=== PATIENT | female | born 1970 | race Caucasian/White ===

== ENCOUNTER 2018-04-18 13:09 | Outpatient (CLI) | payer OTHER ==
--- NOTE | 2018-04-18 14:42 | MRI ---
MRI CERVICAL SPINE WITHOUT CONTRAST: DATE: 04/18/18. HISTORY: Left-sided numbness and tingling, neck pain with cervical radiculopathy. TECHNIQUE: Multiplanar, multisequence MR imaging of the cervical spine is provided without contrast. FINDINGS: There is straightening of the normal cervical lordosis. The sagittal STIR imaging demonstrates no focal area of osseous marrow edema. There is a probable T2 hyperintense nodule in the inferior aspect of the right lobe of the thyroid gl and measuring 1.1 cm. C2-3: No central canal or neural foraminal stenosis. C3-4: No central canal or neural foraminal stenosis. C4-5: There is disk space narrowing and disk desiccation. Thee is a central/left paracentral disk h erniation which abuts the ventral aspect of the cord with mild ventral cord flattening on the left. There is mild superior and inferior migration of this central/left paracentral disk herniation with a moderate degree of central canal stenosis. No significant neural foraminal stenosis. C5-6: There is disk desiccation and disk space narrowing with mild disk bulge causing no significant central canal or neural foraminal stenosis. C6-7: There is disk space narrowing, disk desiccation, and disk bulge. There is a disk herniation i n the foraminal region on the left abutting the exiting nerve root with significant left neural chasidy inal stenosis. No significant central canal or right neural foraminal stenosis. C7-T1: Intervertebral disk height and signal intensity within normal limits with no significant cent ral canal or neural foraminal stenosis. The imaged spinal cord demonstrates normal signal intensity. IMPRESSION: 1. Prominent central/left paracentral disk herniation at C4-5 causing a moderate degree of central c anal stenosis. 2. At C6-7, there is a left foraminal disk herniation causing prominent left neural foraminal stenos is. 3. Question thyroid nodule on the right. Recommend followup thyroid ultrasound. CODE T POS: GAURAV
== END 2018-04-18 13:10 | disposition home or self-care (01) ==
LOC: TBSIIMAG 13:09
PROVIDERS: ATTEND Neurological Surgery
DX: M50.10 Cervical disc disorder with radiculopathy, unspecified cervical region (principal); M48.02 Spinal stenosis, cervical region; M99.81 Other biomechanical lesions of cervical region
CPT/HCPCS: 72141

== ENCOUNTER 2018-09-11 11:37 | Outpatient (CLI) | payer OTHER | END 2018-09-11 11:38 | disposition home or self-care (01) | LOC: BICMAMMO 11:37 | PROVIDERS: ATTEND Obstetrics & Gynecology | DX: Z12.31 Encounter for screening mammogram for malignant neoplasm of breast (principal); Z80.3 Family history of malignant neoplasm of breast | CPT/HCPCS: 77063; 77067 ==

== ENCOUNTER 2019-07-18 07:34 | Outpatient (CLI) | payer OTHER ==
--- NOTE | 2019-07-18 10:33 | MRI ---
CERVICAL SPINE MRI WITHOUT CONTRAST: DATE: 07/18/2019. COMPARISON: 04/18/2018. HISTORY: Left shoulder pain for 1 year. Cervical radiculopathy. TECHNIQUE: Multiplanar, multisequence MRI imaging of the cervical spine provided without contrast. FINDINGS: The sagittal STIR imaging demonstrates no focal area of osseous marrow edema. There is no anterolist hesis or retrolisthesis seen within the cervical spine. C2-3: There is disk desiccation with no central canal or neural foraminal stenosis. C3-4: There is disk desiccation with a small central disk protrusion. There is no significant centr al canal or neural foraminal stenosis. C4-5: This disk herniation measures approximately 6 mm in AP dimension and 1.4 cm in craniocaudal di mension. Disk material abuts and slightly flattens the central/paracentral cord at the C4-5 level an d is unchanged when compared to the 2018 examination. There is no significant neural foraminal steno sis on either side. C5-6: There is disk space narrowing and disk desiccation with mild disk bulge. There is a superimpo sed right paracentral annular tear with an associated right paracentral disk protrusion. This right paracentral disk protrusion causes lateral central canal stenosis on the right and appears new. Ther e is also associated right neural foraminal stenosis which is in the mild to moderate range. No sign ificant left neural foraminal stenosis. C6-7: There is disk space narrowing and disk desiccation with disk bulge, similar when compared to p rior imaging. The degree of neural foraminal stenosis on the left has slightly worsened. On this ex am, there is mild central canal stenosis, mild right neural foraminal stenosis, and moderate left ashley ral foraminal stenosis. C7-T1: Mild bilateral facet hypertrophy with no significant central canal or neural foraminal stenos is. There is no focal area of abnormal signal intensity identified within the cervical cord. IMPRESSION: Multilevel degenerative change noted within the cervical spine as detailed above. This includes a st able large central disk herniation with superior migration at C4-5, a new right paracentral/right for aminal disk protrusion at C5-6 with associated lateral central canal stenosis and neural foraminal st enosis on the right, and a worsened left foraminal disk protrusion at C6-7. POS: OFF
== END 2019-07-18 07:35 | disposition home or self-care (01) ==
LOC: TBSIIMAG 07:34
PROVIDERS: ATTEND Neurological Surgery
DX: M47.22 Other spondylosis with radiculopathy, cervical region (principal); M47.23 Other spondylosis with radiculopathy, cervicothoracic region; M50.121 Cervical disc disorder at C4-C5 level with radiculopathy; M48.02 Spinal stenosis, cervical region
CPT/HCPCS: 72141

== ENCOUNTER 2019-08-28 08:20 | Outpatient (CLI) | payer BC ==
[2019-08-28 15:52] LABS: BHCG - Serum Negative (NEGATIVE); Pregs Control Background? CLEAR/WHITE (CLR/WHITE); Pregs Control Bar Appear? YES (CONTROL BAR)
== END 2019-08-28 08:21 | disposition home or self-care (01) ==
LOC: LABBT 08:20
PROVIDERS: ATTEND Neurological Surgery
DX: Z01.812 Encounter for preprocedural laboratory examination (principal); M54.12 Radiculopathy, cervical region
CPT/HCPCS: 84703

== ENCOUNTER 2019-09-05 05:39 | Inpatient (IN) | payer BC ==
[2019-08-28 14:23] VITALS: BMI 21.9
[2019-09-05] MEDS ORDERED: Thrombin 5000 UNITS/5 ML VIAL ONE (06:10)
[2019-09-05] MEDS ORDERED: Fentanyl 100 MCG/2 ML VIAL ONE ×2 (07:27→10:19)
[2019-09-05] MEDS ORDERED: Labetalol HCl 100 MG/20 ML VIAL ONE (09:33)
[2019-09-05] MEDS ORDERED: Aspirin Chewable 81 MG TAB ONE (10:43)
[2019-09-05] MEDS ORDERED: Nitroglycerin 2% Ointment 1 INCH/1 GM Packet ONE (10:44)
[2019-09-05] MEDS ORDERED: Morphine 4 MG/ML VIAL ONE (10:47)
[2019-09-05] MEDS ORDERED: Rocuronium Bromide 10 MG/ML (10ML VIAL) ONE (11:20)
[2019-09-05] MEDS ORDERED: Ondansetron PF 4 MG/2 ML Vial ONE (11:20)
[2019-09-05] MEDS ORDERED: Lidocaine 1% PF 5 ML VIAL ONE (11:20)
[2019-09-05] MEDS ORDERED: Esmolol 100 MG/10 ML VIAL ONE (11:20)
[2019-09-05] MEDS ORDERED: Dexamethasone 20 MG/5 ML VIAL ONE (11:20)
[2019-09-05] MEDS ORDERED: Glycopyrrolate 0.2 MG/ML 5 ML SYRINGE ONE (11:20)
[2019-09-05] MEDS ORDERED: PROPOFOL 200 MG/20 ML VIAL ONE (11:20)
[2019-09-05] MEDS ORDERED: PHENYLEPHRINE-NS 100 MCG/ML 10 ML SYRINGE ONE (11:20)
[2019-09-05 11:35] LABS: CKMB 0.6 ng/mL (0-6.6); Troponin I Less than 0.010 ng/mL (< 0.028)
[2019-09-05] MEDS ORDERED: Acetaminophen 325 MG TAB PO PRN ×2 (12:30→13:04)
[2019-09-05] MEDS ORDERED: diphenhydrAMINE 50 MG/ML VIAL IVP PRN (13:04)
[2019-09-05] MEDS ORDERED: Morphine 4 MG/ML VIAL SLOW IVP PRN (13:04)
[2019-09-05] MEDS ORDERED: Acetaminophen/Codeine 30-300mg Tablet PO PRN (13:04)
[2019-09-05] MEDS ORDERED: Mag-Al 1200 mg/1200 mg/30 ML UDCUP PO PRN (13:04)
[2019-09-05] MEDS ORDERED: Acetaminophen 650 MG Suppository PR PRN (13:04)
[2019-09-05] MEDS ORDERED: Morphine 2 MG/ML SYRINGE SLOW IVP PRN (13:04)
[2019-09-05] MEDS ORDERED: Ondansetron PF 4 MG/2 ML Vial IVP PRN (13:06)
[2019-09-05 13:29] LABS: #Lymphocytes 0.4 thou/uL (1.20-3.40); #Monocytes 0.1 thou/uL (0.11-0.59); #Neutrophils 8.7 thou/uL (1.40-6.50); %Basophils 0.2 % (0.0-1.0); %Eosinophils 0.2 % (0.0-10.0); %Lymphocytes 4.7 % (21.0-51.0); Hemoglobin 11.5 g/dL (12.0-16.0); Mean Corpuscular HGB CONC 33.2 g/dL (32.0-36.0); Mean Corpuscular Hemoglobin 31.6 pg (27.0-31.0); Mean Corpuscular Volume 95.3 fL (78.0-98.0); Mean Platelet Volume 7.6 fL (7.4-10.4); Platelet Count 219 thou/uL (130-400); RBC Distribution Width 11.8 % (11.5-14.5); Red Blood Cell (RBC) Count 3.64 mill/uL (4.20-5.40); White Blood Cell (WBC) Count 9.2 thou/uL (4.8-10.8)
[2019-09-05] MEDS: Sodium Chloride 0.9% 1,000 ML IV SCH (13:33)
[2019-09-05] MEDS ORDERED: Senokot S 8.6-50 MG TAB PO PRN (13:35)
[2019-09-05 13:52] LABS: ALT (SGPT) 8 U/L (8-55); AST (SGOT) 10 U/L (5-34); Alkaline Phosphatase 38 U/L (40-110); Anion Gap 8 mmol/L (10-20); BUN (Urea Nitrogen) 14 mg/dL (7.0-18.7); Bilirubin, Total 0.6 mg/dL (0.2-1.2); Calc. Creatinine Clearance 92 mL/min (70-130); Calcium 8.7 mg/dL (7.8-10.44); Carbon Dioxide 29 mmol/L (22-29); Chloride 104 mmol/L (98-107); Estimated GFR-MDRD 82; Globulin 2.4 g/dL (2.4-3.5); Glucose 127 mg/dL (70-105); Potassium 4.3 mmol/L (3.5-5.1); Protein, Total 6.4 g/dL (6.0-8.3); Sodium 137 mmol/L (136-145)
--- NOTE | 2019-09-05 14:12 | PDOC.HHP ---
Hospitalist HPI - History of Present Illness Arrhythmia during surgery History of Present Illness: Patient underwent a ACDF for C4-5, 6-7 today and had some irregularities in heart rhythm during surgery. Patient to be admitted post-up to medicine and a cardiology consult has been placed. Patient reports she feeling a little "woozy/ nauseous" but feels this is more related to not eating or drinking for a prolong period. Denies chest pain, SOB, headache, abdominal pain. 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 Neck pain and left arm pain x2 years with progressive pain, intolerance of ADLs due to pain PSX: Abdominal surgery x2, Allergies: NONE MEDS: vitamins Hospitalist ROS - Review of Systems Constitutional: denies: fever, chills, sweats, weakness, malaise, other Eyes: denies: pain, vision change, conjunctivae inflammation, eyelid inflammation, redness, other ENT: reports: throat pain Respiratory: denies: cough, dry, shortness of breath, hemoptysis, SOB with excertion, pleuritic pain, sputum, wheezing, other Cardiovascular: denies: chest pain, palpitations, orthopnea, paroxysmal noc. dyspnea, edema, light headedness, other Gastrointestinal: reports: nausea Genitourinary: denies: dysuria, frequency, incontinence, hematuria, retention, other Musculoskeletal: reports: other (Mild post-op neck pain) Neurological: denies: weakness, numbness, incoordination, change in speech, confusion, seizures, other - Medication Medications: Active Medications Generic Name Dose Route Start Last Admin Trade Name Freq PRN Reason Stop Dose Admin Sodium Chloride 1,000 mls @ 75 mls/hr 09/05/19 13:04 09/05/19 13:33 Normal Saline 0.9% IV 1,000 mls .[id number] EM Administration Hospitalist History - Past Medical History Cardiac: reports: no pertinent history Pulmonary: reports: no pertinent history [employer]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 (radiculopathy to left arm prior to surgery and neck pain for past x2 years) Gastrointestinal: reports: Other (small bowel obstruction in 2012, abdominal adhesions, believed to stem from ruptured appendix years prior) Heme/Onc: reports: no pertinent history Hepatobiliary: reports: no pertinent history Psych: reports: no pertinent history Musculoskeletal: reports: Other (neck, left arm pain prior to surgery) Rheumatologic: denies: no pertinent history, Fibromyalgia, Gout, Rheumatoid arthritis, Vasculitis, Other Infectious Disease: denies: no pertinent history, Bacterial vaginosis, [place], Gonorrhea, HIV, Human papilloma virus, Herpes simplex 1, Herpes simplex 2, Herpes zoster, Other ENT: denies: no pertinent history, Sinusitis, Allergic rhinitis, Other Renal/: denies: no pertinent history, Chronic renal insuff, Acute renal failure, Chronic renal failure, UTI, Benign prostatic enlarg., Hematuria, Other Endocrine: denies: no pertinent history, Diabetes, Hyperthyroidism, Hypothyroidism, Hyperparathyroidism, Osteopenia, Osteoporosis, Other Dermatology: denies: no pertinent history, Eczema, Cellulitis, Psoriasis, Melanoma, Basal cell, Squamous cell, Other - Past Surgical History Past Surgical History: reports: Appendectomy - Family History Family History: reports: no pertinent history - Social History Living Situation: With Family Activity level: independent ambulation - Exam Eye: PERRL ENT: moist mucosa Neck: supple Neck - other findings: bandage, clean, dry, intact to right anterior neck Heart: RRR Respiratory: CTAB Gastrointestinal: soft, normal bowel sounds Extremities: no edema Skin: normal turgor Neurological: cranial nerve grossly intact Musculoskeletal: normal strength Psychiatric: normal affect, A&O x 3 Hospitalist Results - Labs Result Diagrams: 09/05/19 13:21 09/05/19 13:21 Lab results: WBC 9.2 thou/uL (4.8-10.8) 09/05/19 13:21 Hgb 11.5 g/dL (12.0-16.0) L 09/05/19 13:21 Hct 34.7 % (36.0-47.0) L 09/05/19 13:21 MCV 95.3 fL (78.0-98.0) 09/05/19 13:21 Plt Count 219 thou/uL (130-400) 09/05/19 13:21 Neutrophils % 94.0 % (42.0-75.0) H 09/05/19 13:21 Sodium 137 mmol/L (136-145) 09/05/19 13:21 Potassium 4.3 mmol/L (3.5-5.1) 09/05/19 13:21 Chloride 104 mmol/L (98-107) 09/05/19 13:21 Carbon Dioxide 29 mmol/L (22-29) 09/05/19 13:21 BUN 14 mg/dL (7.0-18.7) 09/05/19 13:21 Creatinine 0.76 mg/dL (0.6-1.1) 09/05/19 13:21 Glucose 127 mg/dL (70-105) H 09/05/19 13:21 Calcium 8.7 mg/dL (7.8-10.44) 09/05/19 13:21 Total Bilirubin 0.6 mg/dL (0.2-1.2) 09/05/19 13:21 AST 10 U/L (5-34) 09/05/19 13:21 ALT 8 U/L (8-55) 09/05/19 13:21 Alkaline Phosphatase 38 U/L (40-110) L 09/05/19 13:21 Creatine Kinase 66 U/L (29-168) 09/05/19 10:56 CK-MB (CK-2) 0.6 ng/mL (0-6.6) 09/05/19 10:56 Troponin I Less than 0.010 ng/mL (< 0.028) 09/05/19 10:56 Serum Total Protein 6.4 g/dL (6.0-8.3) 09/05/19 13:21 Albumin 4.0 g/dL (3.5-5.0) 09/05/19 13:21 Hospitalist H&P A/P - Problem (1) Arrhythmia Code(s): I49.9 - CARDIAC ARRHYTHMIA, UNSPECIFIED Status: Acute (2) Cervicalgia Code(s): M54.2 - CERVICALGIA Status: Chronic (3) Radiculopathy of arm Code(s): M54.10 - RADICULOPATHY, SITE UNSPECIFIED Status: Chronic - Plan Plan: Cardiology consult Fluid hydration Full liquid diet Pain meds as needed for post-op pain Zofran as needed for nausea Will check comp met, CBC, mag, troponins, TSH Will keep on a heart monitor Will await further recommendations from Cardiology SCDs, Daria
[2019-09-05] MEDS: CEFAZOLIN 2 GM in Premix Bag 1 BAG IVPB SCH ×2 (14:24→21:28)
--- NOTE | 2019-09-05 15:25 | OP ---
DATE OF PROCEDURE: 09/05/2019 GOVERNMENT SERVICES PROFESSIONAL: Memo Hathaway PA-C. INDICATION: Pain. DIAGNOSIS: Cervical stenosis with cervical radiculopathy. PROCEDURE PERFORMED: Anterior cervical diskectomy and fusion at C4-C5 and C6-C7. ANESTHESIA: General. DESCRIPTION OF PROCEDURE: The patient was brought into the operating room and placed under general anesthesia. She was placed on table in a supine position. A transverse incision was planned over the lateral aspect of the neck on the right. After prepping and draping and after an appropriate operative pause, the incision was created. The underlying platysma muscle was identified and incised. A blunt tissue plane anterior to the sternocleidomastoid muscle was used to gain access to the prevertebral space. We identified the C6-C7 level with C-arm fluoroscopy. An annulotomy was performed and disk material was removed. Distraction pins were placed for improved visualization. Anterior and posterior osteophytes were then removed so that, that segment was completely decompressed. A lordotic PEEK cage packed with allograft and autograft material was then placed within the interbody space. The anterior cervical plate was then fashioned to the front of the spine after removing the distraction pins and the plate was secured with four fixed screws. We then redirected our attention 2 levels up at C4-C5, where again an annulotomy was performed. All disk material as well as anterior and posterior osteophytes were removed. After decompressing that segment, a 6-mm lordotic PEEK cage packed with allograft and autograft material was placed into the interbody space. An anterior cervical plate was not placed over that level. The wound was then irrigated. Hemostasis was maintained throughout. The wound was then closed in anatomic layers and a pressure dressing was applied. There were no known procedural complications. Job ID: [id number]
[2019-09-05 17:39] LABS: Troponin I Less than 0.010 ng/mL (< 0.028)
--- NOTE | 2019-09-05 20:04 | CON ---
DATE OF CONSULTATION: 09/05/2019 REASON FOR CONSULTATION: Abnormal intraoperative EKG. HISTORY OF PRESENT ILLNESS: Ms. Mcmanus is a 49-year-old woman who underwent successful repair of cervical spine issues today. During the sedation, as noted, she had some ST depression. She was given some beta blockers, not improved. The patient also has had some EKG changes in the postoperative period. The patient has never had anginal type chest pain or pressure. She has had occasional episodes of feeling her heart racing for about 10 seconds at a time, which caused her to take a deep breath. She has never had chest pressure, suspicious for angina. PAST MEDICAL HISTORY: Negative for any tobacco. FAMILY HISTORY: Some coronary artery disease in older age in the family, not at young age. No hypercholesterolemia or hypertension. REVIEW OF SYSTEMS: CONSTITUTIONAL: No significant weight gain or loss. VISION: No changes. HEARING: No changes. PULMONARY: No cough or wheezing. GASTROINTESTINAL: No nausea, vomiting, or diarrhea. SKIN: No rashes. NEUROLOGIC: No unilateral weakness or numbness. PSYCHIATRIC: No unusual depression or anxiety. PHYSICAL EXAMINATION: GENERAL: This is a pleasant 49-year-old woman, in no distress. VITAL SIGNS: Blood pressure 108/58, pulse 80. HEENT: Eyes, sclerae are nonicteric. Mouth, mucous membranes are moist. NECK: Supple. No lymphadenopathy. LUNGS: Clear. No wheezing, rales, or rhonchi. CARDIAC: Normal S1, normal S2. There is no murmur, rub, or gallop. ABDOMEN: Soft, nontender. EXTREMITIES: Warm and dry. No clubbing or cyanosis or edema. Good pedal pulses bilaterally. Normal pedal pulses. DIAGNOSTIC DATA: EKG, sinus rhythm. There were some T-wave inversion in V5 and V6 with some QT prolongation in the postoperative period. ASSESSMENT: 1. Successful repair of cervical spine issues. 2. EKG changes of uncertain significance. PLAN: 1. Stress testing to be done. 2. Echocardiogram. 3. Potassium and magnesium levels were drawn, they were normal. 4. Further recommendations following that. Job ID: [id number]
[2019-09-05] MEDS: Famotidine 20 MG TAB PO SCH (21:27)
[2019-09-05] MEDS: Acetaminophen/Codeine 30-300mg Tablet PO PRN (21:28)
[2019-09-05] MEDS: Cyclobenzaprine 10 MG TAB PO PRN (21:37)
[2019-09-06] MEDS: Sodium Chloride 0.9% 1,000 ML IV SCH ×2 (02:36→15:39)
[2019-09-06 05:17] LABS: #Eosinphils 0.1 thou/uL (0.0-0.7); #Monocytes 0.9 thou/uL (0.11-0.59); #Neutrophils 6.7 thou/uL (1.40-6.50); %Basophils 0.4 % (0.0-1.0); %Eosinophils 1.1 % (0.0-10.0); %Lymphocytes 20.9 % (21.0-51.0); %Monocytes 8.8 % (0.0-10.0); %Neutrophils 68.9 % (42.0-75.0); Hemoglobin 10.5 g/dL (12.0-16.0); Mean Corpuscular HGB CONC 33.3 g/dL (32.0-36.0); Mean Corpuscular Hemoglobin 32.2 pg (27.0-31.0); Mean Corpuscular Volume 96.4 fL (78.0-98.0); Mean Platelet Volume 7.7 fL (7.4-10.4); Platelet Count 202 thou/uL (130-400); RBC Distribution Width 11.9 % (11.5-14.5); Red Blood Cell (RBC) Count 3.28 mill/uL (4.20-5.40); White Blood Cell (WBC) Count 9.7 thou/uL (4.8-10.8)
[2019-09-06 05:37] LABS: Anion Gap 10 mmol/L (10-20); BUN (Urea Nitrogen) 8 mg/dL (7.0-18.7); Calc. Creatinine Clearance 98 mL/min (70-130); Calcium 8.7 mg/dL (7.8-10.44); Carbon Dioxide 28 mmol/L (22-29); Cardiac Risk 2.9 (Less than 4.5); Chloride 105 mmol/L (98-107); Cholesterol 165 mg/dl (< 200 Desired); Estimated GFR-MDRD 88; Glucose 99 mg/dL (70-105); HDL Cholesterol 56 mg/dL (>60 Neg Risk); LDL Cholesterol, Calculated 101 mg/dL; Potassium 4.1 mmol/L (3.5-5.1); Sodium 139 mmol/L (136-145); Triglycerides 40 mg/dL (Less than 150)
[2019-09-06 05:42] LABS: Troponin I Less than 0.010 ng/mL (< 0.028)
[2019-09-06] MEDS: Famotidine 20 MG TAB PO SCH ×2 (07:33→21:26)
--- NOTE | 2019-09-06 08:56 | PRG ---
DATE OF SERVICE: 09/06/2019 Ms. Mcmanus is status postop day #1 following 2-level ACDF. She was unfortunately admitted for some ST depression and cardiac concerns, which she continues to be asymptomatic from. She has further workup pending today, but overall feels quite well after surgery. She has minimal throat soreness, has no dysphonia. She can also already tell an improvement in her preoperative symptoms. Neurosurgery will continue to follow and plan to see at her scheduled postoperative visit in 2 weeks. Job ID: [id number]
[2019-09-06] MEDS ORDERED: Regadenoson 0.4 MG/5 ML SYRINGE ONE (10:16)
[2019-09-06] MEDS ORDERED: Sodium Chloride 0.9% 500 ML IV SCH (11:00)
--- NOTE | 2019-09-06 15:31 | NM ---
NUCLEAR MEDICINE CARDIAC STRESS WITH EF AND WALL MOTION: HISTORY: Abnormal EKG. COMPARISON: None. TECHNIQUE: Patient was administered 9.8 mCi of technetium 99m sestamibi for stress imaging and 27.10 mm of techn etium 99m sestamibi for rest imaging. Cardiac gating is performed. FINDINGS: There does not appear to be reversibility or fixed defect in the left ventricle. TID is 1.08. End-diastolic volume is 88 mL. End-systolic volume is 31 mL. Cardiac gating: Normal wall motion and thickening. 65% ejection fraction. IMPRESSION: 1. No reversibility or fixed defect. 2. 65% ejection fraction. Exam reviewed in conjunction with Dr. Nicholson Results discussed with Dr. Jovel 09/06/2019 Code CR Transcribed Date/Time: 09/06/2019 3:38 PM
--- NOTE | 2019-09-06 15:59 | PRG ---
DATE OF SERVICE: 09/06/2019 SUBJECTIVE: The patient is seen and examined at the bedside. She had episode of hypotension after she came back from the first part of her stress test. She was treated with IV fluids and her blood pressure improved from the 70s to 100 systolic. The patient does not have any chest pain, but she admits that she gets lightheaded when she changes position from sitting to standing, which is basically normal for her and she has multiple syncopal episodes in the past, but she never had any additional workup done. She never told her doctor about the problem. She does not have any primary care doctor. She uses her hot patcher, Dr. Stern for any primary care issues. OBJECTIVE: VITAL SIGNS: Blood pressure is 104/61, temperature is 98 respirations 16, and O2 saturation is 99% on room air. HEENT: Her head is atraumatic and normocephalic. Eyes are PERRLA, sclerae are nonicteric. Oral mucosa is moist. NECK: Right side of the neck is covered with dressing. LUNGS: Clear. HEART: S1 and S2, normal. No S3. No S4. ABDOMEN: Soft, nontender, and nondistended. EXTREMITIES: No clubbing, cyanosis, or edema. NEUROLOGIC: She is alert and oriented x4. There are no any motor or sensory deficits. LABORATORY DATA: Labs showed white count of 9.7, hemoglobin 10.5, hematocrit 31.6, platelet count is 202. Normal chemistry. Cholesterol is 165, triglycerides 40, LDL 101, and HDL 56. Three sets of troponins within normal limits. Echocardiogram was done and it showed LVEF estimated at 60% to 65% and normal left ventricle. Stress test was completed, but the results are still pending. IMPRESSION: 1. EKG abnormalities with T-wave inversions in V5 and V6 and some QT prolongation in the postoperative period. 2. Hypotension. 3. Degenerative joint disease with cervical stenosis and cervical radiculopathy, status post anterior cervical diskectomy and fusion at C4, C5, C6, and C7, which was done yesterday. DISCUSSION: We are waiting for the final report on her stress test. Apparently, she has a history of syncopal episodes and she has a family history of similar episodes on her mother's side. The patient's blood pressure improved with IV fluid bolus. Her LVEF was checked on echocardiogram and it showed normal function. Dr. Ferrell is involved in her care and he will make final decision whether she needs to have any additional testing done on her heart or not. Job ID: [id number]
[2019-09-06] MEDS ORDERED: Promethazine 25 MG TAB PO PRN (18:15)
--- NOTE | 2019-09-06 18:18 | PRG ---
DATE OF SERVICE: 09/06/2019 SUBJECTIVE: Ms. Mcmanus is doing okay now. Earlier today, she had some orthostatic hypotension that improved with intravenous fluid. This stress test had to be delayed due to some orthostasis. She was given a Lexiscan stress test. She had severe ST depression in lead II, III, aVF and V3 through V6 a couple of millimeters in fact had to be given aminophylline 50 mg to reverse the stressing agent. The stress test was read as septal ischemia. Reviewing the films, I am not really sure that the nuclear imaging is a significant finding, but the EKG changes were very pronounced. OBJECTIVE: VITAL SIGNS: Blood pressure 107/57, sometimes it is in the 90s. LUNGS: Clear. CARDIAC: Normal S1 and normal S2. ABDOMEN: Soft and nontender. EXTREMITIES: No edema. ASSESSMENT: 1. Intraoperative EKG changes, ST depression. 2. ST depression with stress testing. 3. Echo was normal. PLAN: The most definitive test would be cardiac catheterization. The only other option definitive would be a CT coronary angiogram, but that is not available at this institution. The patient indicated that she wishes to talk to Dr. Meek, who is a personal friend. Certainly, we would not do anything until Sunday. We will keep the patient in the hospital until then. Job ID: [id number] [facility]
[2019-09-06] MEDS: Acetaminophen/Codeine 30-300mg Tablet PO PRN (21:26)
[2019-09-07] MEDS: diphenhydrAMINE 25 MG CAP PO PRN ×2 (01:48→21:52)
[2019-09-07] MEDS: Cyclobenzaprine 10 MG TAB PO PRN (01:48)
[2019-09-07] MEDS: Sodium Chloride 0.9% 1,000 ML IV SCH (05:07)
[2019-09-07 05:21] LABS: Troponin I Less than 0.010 ng/mL (< 0.028)
[2019-09-07] MEDS: Famotidine 20 MG TAB PO SCH ×2 (09:25→21:52)
--- NOTE | 2019-09-07 09:39 | PRG ---
DATE OF SERVICE: 09/07/2019 SUBJECTIVE: Ms. Mcmanus is resting comfortably in her hospital bed. She was admitted due to ST-segment changes and irregularities in the perioperative setting. She has undergone a fairly extensive cardiac workup over the last 24 to 36 hours. Her stress echo yesterday revealed a minor abnormality, which has led to the need for a cardiac catheterization to be performed tomorrow. With respect to her cervical spine surgery, she is doing quite well and reports minimal dysphagia and dysphonia. Her preoperative radiculopathy symptoms have resolved. Her incision remained clean, dry, and intact and she has been mobilizing well. Should she need antiplatelet agents due to any intervention to be performed tomorrow that would be acceptable. I did discuss with her that there is a real risk of postoperative hemorrhage in the setting of antiplatelet agents, but I believe that risk is very low and I believe the benefits of any cardiac intervention exceed the risks. From a neurosurgical perspective, she can be discharged at any time once Cardiology Service feels she is safe to do so. Job ID: [id number]
--- NOTE | 2019-09-07 10:50 | PRG ---
DATE OF SERVICE: 09/07/2019 SUBJECTIVE: The patient is seen and examined at the bedside. She does not have much complaints to offer. Her chest pain is completely gone. Her appetite is fair. OBJECTIVE: VITAL SIGNS: Blood pressure is 111/69, pulse is 73, temperature is 98.0, respiratory rate is 18, and O2 saturation is 97% on room air. HEENT: Head is atraumatic and normocephalic. Eyes are PERRLA. Sclerae are nonicteric. Oral mucosa is moist. NECK: Supple. LUNGS: Clear. HEART: S1 and S2 normal. No S3. No S4. ABDOMEN: Soft, nontender, and nondistended. EXTREMITIES: No clubbing, cyanosis, or edema. NEUROLOGIC: Examination is intact. LABORATORY DATA: Showed cortisol 2.4. This was done at 03:47 p.m. IMPRESSION: 1. Stress test read as ischemic changes in the midportion of the septum along with T-wave inversion in V5 and V6 on the recent EKG. Those findings were discussed with the patient and physician vice president addressed them with her. She would like to wait with making decision about cardiac catheterization, which would be the next step to evaluate her condition. She would like to talk to Dr. Meek and maybe Dr. Vieira. She knows both of those doctors personally and get their opinion. Also there is a hypotension issue, which is most likely related to her hypocortisolemia. 2. Hypotension. 3. Degenerative joint disease with cervical stenosis and cervical radiculopathy and status post anterior cervical diskectomy and fusion at C4-C5, C6-C7. We are going to obtain ACTH level and based on this finding, we will make decision whether she needs CT of the brain or CT of the adrenal glands. At this point, I am not starting her on any cortisol since her blood pressure is doing well and most likely, she will need ACTH stimulation test, so she remained in the hospital until tomorrow and in the meantime, we will do additional testing and tomorrow, she will make decision about the cardiac catheterization. Job ID: [id number]
--- NOTE | 2019-09-07 16:22 | EKG ---
Test Reason : S/P CERVICAL FUSION Blood Pressure : / mmHG Vent. Rate : 063 BPM Atrial Rate : 063 BPM P-R Int : 128 ms QRS Dur : 082 ms QT Int : 484 ms P-R-T Axes : 074 017 040 degrees QTc Int : 495 ms Normal sinus rhythm Low voltage QRS Nonspecific T wave abnormality Prolonged QT Abnormal ECG No previous ECGs available Confirmed by DR. Cristina ZAIDI ([id number]) on 09/07/2019 4:22:27 PM Referred By: HANNY Confirmed By:DR. Cristina ZAIDI
[2019-09-07] MEDS ORDERED: Diazepam 5 MG TAB PO SCH (17:45)
[2019-09-07] MEDS ORDERED: Communication Order-Pharmacy FS PRN (17:45)
--- NOTE | 2019-09-07 17:53 | PRG ---
DATE OF SERVICE: SUBJECTIVE: Yonathan is feeling well. No further complaints. Dr. Carrillo found that she has a low cortisol level, which makes plain the orthostatic hypotension. OBJECTIVE: VITAL SIGNS: Blood pressure today 110/58, pulse 80. LUNGS: Clear. CARDIAC: Normal S1 and normal S2. ABDOMEN: Soft and nontender. ASSESSMENT: 1. ST depression intraoperatively. 2. ST depression, severe with Lexiscan stress test with some septal ischemia. PLAN: Proceed to cardiac catheterization tomorrow. She understands risk of stroke, heart attack, iodine allergy, loss of blood supply to leg or kidney, stent thrombosis, stent restenosis, vessel perforation. All discussed with the patient. She understands and wishes to proceed. Job ID: [id number]
[2019-09-08] MEDS: Sodium Chloride 0.9% 1,000 ML IV SCH ×2 (05:34→13:04)
[2019-09-08] MEDS ORDERED: Heparin (Artline) 1,000 ML ONE (08:01)
[2019-09-08] MEDS ORDERED: Lidocaine 1% (PF) 30 ML VIAL ONE (08:01)
[2019-09-08] MEDS ORDERED: Fentanyl 100 MCG/2 ML VIAL ONE (08:45)
[2019-09-08] MEDS ORDERED: Midazolam HCl 2 mg/2 ml Vial ONE (08:45)
[2019-09-08] MEDS ORDERED: Metoprolol Tartrate 5 MG/5 ML VIAL ONE (08:53)
[2019-09-08] MEDS ORDERED: Sodium Chloride 0.9% 200 ML IV PRN (09:20)
[2019-09-08] MEDS ORDERED: Acetaminophen/Codeine 30-300mg Tablet PO PRN ×2 (09:20)
[2019-09-08] MEDS ORDERED: Nitroglycerin 0.4 MG TAB (25 Tab Bottle) SL PRN (09:20)
[2019-09-08] MEDS ORDERED: Iopamidol 370 76% 100 ML VIAL ONE (10:52)
--- NOTE | 2019-09-08 12:16 | HP ---
HISTORY OF PRESENT ILLNESS: Ms. Mcmanus is a pleasant 49-year-old woman here today for evaluation of cervical radiculopathy, which fits both the C5 and C7 radicular pattern mostly to the left. She was treated this with injections, therapy, and medications and would like to move forward with surgery if deemed appropriate. MRI from [facility] that reveals central disk protrusion at C4-C5 as well as bilateral foraminal stenosis secondary to disk osteophyte complex at C6-C7 as well. PAST MEDICAL HISTORY: No major medical problem. PAST SURGICAL HISTORY: Appendectomy and bowel obstruction. CURRENT MEDICATIONS: Phentermine. ALLERGIES: NO KNOWN DRUG ALLERGIES. PHYSICAL EXAMINATION: The patient is alert and oriented x3. Gait is normal , positive left Spurling's . PLAN: Dr. Jovel met with the patient, reviewed imaging, and advocated for C4-C5 as well as C6-C7 ACDF. He explained to the patient the risks, benefits, and alternatives to the procedure. The patient expressed understanding and elected to move forward with surgery as discussed. I do believe the patient is mentally component and capable of making medical decisions for herself. We will move forward with surgery as planned. Job ID: [id number]
[2019-09-08] MEDS: Famotidine 20 MG TAB PO SCH (12:18)
[2019-09-08] MEDS ORDERED: Cosyntropin 250 MCG VIAL SLOW IVP ONE (13:09)
[2019-09-08] MEDS ORDERED: Cosyntropin 250 MCG VIAL SLOW IVP SCH ×2 (13:15→14:30)
[2019-09-08 15:35] VITALS: BP 106/59; TEMP 97.5
--- NOTE | 2019-09-10 10:19 | DIS ---
DATE OF ADMISSION: 09/05/2019 DATE OF DISCHARGE: 09/08/2019 DISCHARGE DIAGNOSES: 1. Abnormal stress test, negative cardiac catheterization for obstructive coronary artery disease. 2. Degenerative joint disease with cervical stenosis and cervical radiculopathy and status post anterior cervical diskectomy and fusion at C4-C5 and C6-C7 level. 3. Chronic dizziness. PHYSICAL EXAMINATION: VITAL SIGNS: On discharge; blood pressure 106/59, temperature 97.5, pulse 81, respirations 14, oxygen saturation 99%. GENERAL: The patient is lying in bed comfortably, not in any distress. NECK: Supple. Incision site clean. No obvious neck swelling noted. CHEST: Normal vesicular breathing. HEART: Sounds normal. ABDOMEN: Soft, benign, nontender. No visceromegaly. EXTREMITIES: Negative edema of feet. LABORATORY DATA: ACTH stimulation test, cortisol baseline 7, 30 minutes at 16.8, 60 minutes at 18.8, cortisol at 90 minutes was 20.3. Troponins are negative. CBC unremarkable except hemoglobin of 10.5. BMP unremarkable. HOSPITAL SUMMARY: The patient, Yonathan Hayward was admitted for ST-T changes while she had ACDF surgery for cervical stenosis and cervical radiculopathy. The patient underwent ACDF C4-C5 and C6-C7 levels and the patient admitted for further evaluation. The patient's troponins were negative. The patient was evaluated by Cardiology, performed a stress test, which showed ST-segment depression during the stress. The patient underwent a cath, which was normal and Cardiology cleared for discharge. The patient also had chronic dizziness on changing posture. The patient had been having chronic low blood pressure, but as per the patient, she never had any other symptoms of diarrhea, constipation, or weight loss. The patient had a random cortisol performed, which was 2.40, performed on 09/07, ACTH stimulation test, which showed cortisol baseline was 7, at 30 minutes was 16.8, 60 minutes was 18.6, 90 minutes was 20.3. The patient's ACTH was 15.3. The patient is currently stable and denies any active complaint, mobilized. The patient being discharged. Advised to follow up with PCP, Cardiology, Neurosurgery, and Endocrinology. Plan discussed with the patient and family member in detail. All questions answered. Job ID: [id number]
--- NOTE | 2019-09-15 21:46 | PQF ---
Yesy Mcmanus [facility] [id number] CLINICAL DOCUMENTATION CLARIFICATION FORM: POST DISCHARGE Addendum to original discharge summary date: ____ Late entry note date: __ DATE:09/15/2019 ATTN:MELANY JOHN Please exercise your independent, professional judgment in responding to the clarification form. Clinical indicators are provided on the bottom of this form for your review Please check appropriate box(s): [ ] Abnormal stress test is a complication of current/recent surgery [ ] Abnormal stress test is not a complication of current/recent surgery [ ] Other diagnosis [ ] Unable to determine CLINICAL INDICATORS - SIGNS / SYMPTOMS / LABS Anterior cervical diskectomy and fusion at C4-C5 and L6-Y5-Gbwbchiuks in OP note on 09/05 by jay Jovel Patient had some irregularities in heart rhythm during surgery-Documented in Hospitalist history & physical on 09/05 by Sharyn Carrion Arrhythmia-Documented in Hospitalist history & physical on 09/05 by Sharyn Carrion EKG changes of uncertain significance-Documented in consultation report on by Ghassan york During the sedation as noted, she had some ST depression-Documented in consultation report on 09/05 by Ghassan york Some QT prolongation in the postoperative period-Documented in consultation report on 09/05 by Ghassan york Hypotension-Documented in PN on 09/05 by Bo Carrillo RISK FACTORS Anterior cervical diskectomy and fusion at C4-C5 and R0-B0-Jnagcaslss in OP note on 09/05 by jay Jovel Hypotension-Documented in PN on 09/05 by Bo Carrillo TREATMENT: Cardiology consult-Documented in Hospitalist history & physical on 09/05 by Sharyn Carrion Fluid hydration-Documented in Hospitalist history & physical on 09/05 by Sharyn Carrion The patient underwent a cath-Documented in DS on 09/08 by Melany John [employer] Winform Viewer (This form is maintained as a part of the permanent medical record) 2014 [employer], [employer]. All Rights Reserved [email or web address] [not provided] MTDD
--- NOTE | 2019-09-22 07:22 | PQF ---
YonathanYesyMELANY Meyers [id number] CLINICAL DOCUMENTATION CLARIFICATION FORM: POST DISCHARGE Addendum to original discharge summary date: ____ Late entry note date: __ DATE: 09/22/2019 ATTN: MELANY JOHN Please exercise your independent, professional judgment in responding to the clarification form. Clinical indicators are provided on the bottom of this form for your review Please check appropriate box(s): kindly further clarify the ST depression as [ ] STEMI [ ] NSTEMI [ ] Abnormal ekg findings [ ] Other diagnosis [ ] Unable to determine For continuity of documentation, please document condition throughout progress notes and discharge summary. Thank You. CLINICAL INDICATORS - SIGNS / SYMPTOMS/ LABS are present in the medical record: Arrhythmia-Documented in H&p on 09/05 by Sharyn Mercado Troponin I-Less than-0.010-Documented in H&p on 09/05 by Sharyn Mercado EKG abnormalities with T-wave inversions in V5 and V6 and some QT prolongation in the postoperative period-Documented in PN on 09/06 by Bo Carrillo Interoperative EKG changes,ST depression-Documented in PN on 09/[address] depression with stress testing-Documented in PN on 09/06 by Denice Ferrell Abnormal stress test-Documented in DS on 09/08 by Shivani John Negative cardiac catheterization-Documented in DS on 09/08 by Shivani John RISK FACTORS Abnormal stress test-Documented in DS on 09/08 by Shivani John Status post anterior cervical diskectomy and fusion at C4-C5 and C6-C7- Documented in DS on 09/08 by Shivani John TREATMENT Cardiology consult-Documented in H&p on 09/05 by Sharyn Mercado Cardiac catheterization -Documented in DS on 09/08 by Shivani John Aspirin chewable-Medication snapshot (This form is maintained as a part of the permanent medical record) 2014 [employer]. All Rights Reserved [email or web address] [not provided] MTDD
== END 2019-09-08 18:31 | disposition home or self-care (01) | DRG 983 ==
LOC: SDC 05:39 → OBSVTOIN 12:55 → 2SW 12:55
PROVIDERS: ADMIT Neurological Surgery; ATTEND Neurological Surgery
PROC: 0RT30ZZ Resection of Cervical Vertebral Disc, Open Approach (ICD-10-PCS; principal; 2019-09-05)
PROC: 0RG20A0 Fusion of 2 or more Cervical Vertebral Joints with Interbody Fusion Device, Anterior Approach, Anterior Column, Open Approach (ICD-10-PCS; 2019-09-05)
PROC: 4A023N7 Measurement of Cardiac Sampling and Pressure, Left Heart, Percutaneous Approach (ICD-10-PCS; 2019-09-05)
PROC: B2111ZZ Fluoroscopy of Multiple Coronary Arteries using Low Osmolar Contrast (ICD-10-PCS; 2019-09-05)
DX: R94.39 Abnormal result of other cardiovascular function study (principal); R94.31 Abnormal electrocardiogram [ECG] [EKG]; M48.02 Spinal stenosis, cervical region; M54.12 Radiculopathy, cervical region; I10 Essential (primary) hypertension; R42 Dizziness and giddiness
CPT/HCPCS: 36415; 76000; 76942; 78452; 80048; 80053; 80061; 80400; 82024; 82533; 82550; 82553; 83735; 84443; 84484; 85025; 93005; 93010; 93017; 93306; 93458; 99152; 99153; A9500; C1713; C1769; C1776; J0131; J0280; J0690; J0834; J1100; J1644; J2001; J2250; J2270; J2405; J2704; J2785; J3010; Q0163; Q0169; Q9967

== ENCOUNTER 2020-07-06 09:32 | Outpatient (CLI) | payer BC ==
--- NOTE | 2020-07-06 10:36 | MMO ---
Left Breast MAMMO Unilat Diag DDI LT+CARMEN. CLINICAL HISTORY: Patient is 50 years old and is seen for diagnostic exam. The patient has the following family history of breast cancer: mother, at age 56; maternal aunt, at age 45 and 2 cousin females, at age 48, (maternal). The patient has no personal history of cancer. VIEWS: The views performed were: left craniocaudal spot compression with tomosynthesis; left mediolateral oblique spot compression with tomosynthesis; and left mediolateral with tomosynthesis. FILMS COMPARED: The present examination has been compared to prior imaging studies performed at [facility] on 06/23/2020, and at [facility] on 06/13/2011, 09/22/2015 and 09/11/2018. This study has been interpreted with the assistance of computer-aided detection. MAMMOGRAM FINDINGS: The breast is heterogeneously dense, which could obscure a lesion on mammography. The questionable asymmetric density did not persist with the additional views. There are no suspicious masses, suspicious calcifications, or new areas of architectural distortion. IMPRESSION: THERE IS NO MAMMOGRAPHIC EVIDENCE OF MALIGNANCY. A ROUTINE FOLLOW-UP MAMMOGRAM IN 1 YEAR IS RECOMMENDED. THE RESULTS OF THIS EXAM WERE SENT TO THE PATIENT. ACR BI-RADS Category 2 - Benign finding MAMMOGRAPHY NOTE: 1. A negative mammogram report should not delay a biopsy if a dominant of clinically suspicious mass is present. 2. Approximately 10% to 15% of breast cancers are not detected by mammography. 3. Adenosis and dense breasts may obscure an underlying neoplasm. Reported by: MICA SILVA MD Electonically Signed: [id number]
== END 2020-07-06 09:33 | disposition home or self-care (01) ==
LOC: BICMAMMO 09:32
PROVIDERS: ATTEND Obstetrics & Gynecology
DX: R92.8 Other abnormal and inconclusive findings on diagnostic imaging of breast (principal)
CPT/HCPCS: G0279